=== PATIENT | female | born 1940 | race Caucasian/White ===

== ENCOUNTER 2017-10-08 00:01 | Emergency (ER) | payer OTHER ==
[~2017-10-08] VITALS: Ht 154.9 cm; Wt 62.1 kg
[~2017-10-08 00:01] MED LIST: COLACE100 MG PO; KEFLEX500 MG PO; LAC PO; LIPITOR10 MG PO; NOR10T PO
[2017-10-08 00:07] VITALS: Ht 154.9 cm; Wt 62.1 kg
[2017-10-08 03:11] VITALS: BP 145/78
== END 2017-10-08 03:11 | disposition home or self-care (01) ==
LOC: ED 00:01
DX: R51 Headache (principal); R20.2 Paresthesia of skin; E78.00 Pure hypercholesterolemia, unspecified

== ENCOUNTER 2017-12-20 16:17 | Emergency (ER) | payer OTHER ==
[~2017-12-20] VITALS: Ht 154.9 cm; Wt 62.6 kg
[2017-12-20 16:27] VITALS: Ht 154.9 cm; Wt 62.6 kg
[2017-12-20 21:27] VITALS: BP 146/78
== END 2017-12-20 21:27 | disposition home or self-care (01) ==
LOC: ED 16:17
DX: S06.0X0A Concussion without loss of consciousness, initial encounter (principal); S22.31XA Fracture of one rib, right side, initial encounter for closed fracture; S13.4XXA Sprain of ligaments of cervical spine, initial encounter; S29.012A Strain of muscle and tendon of back wall of thorax, initial encounter; S70.02XA Contusion of left hip, initial encounter; E78.00 Pure hypercholesterolemia, unspecified; W18.30XA Fall on same level, unspecified, initial encounter; Y93.89 Activity, other specified; Y99.8 Other external cause status; Y92.89 Other specified places as the place of occurrence of the external cause
CPT/HCPCS: 72072

== ENCOUNTER 2019-01-07 08:43 | Emergency (ER) | payer OTHER ==
[~2019-01-07] VITALS: Ht 154.9 cm; Wt 60.8 kg
[2019-01-07 08:47] VITALS: Ht 154.9 cm; Wt 60.8 kg
[2019-01-07 09:50] VITALS: BP 142/88
== END 2019-01-07 10:56 | disposition home or self-care (01) ==
LOC: ED 08:43
DX: S13.9XXA Sprain of joints and ligaments of unspecified parts of neck, initial encounter (principal); M54.5 Low back pain; E78.00 Pure hypercholesterolemia, unspecified; Z90.49 Acquired absence of other specified parts of digestive tract; Z98.890 Other specified postprocedural states; W18.40XA Slipping, tripping and stumbling without falling, unspecified, initial encounter; Y93.89 Activity, other specified; Y92.89 Other specified places as the place of occurrence of the external cause; Y99.8 Other external cause status

== ENCOUNTER 2020-06-01 18:27 | Emergency (ER) | payer OTHER ==
[~2020-06-01] VITALS: Ht 157.5 cm; Wt 61.7 kg
[2020-06-01 18:45] VITALS: Ht 157.5 cm; Wt 61.7 kg
[2020-06-01 20:10] VITALS: BP 152/78
== END 2020-06-01 20:10 | disposition home or self-care (01) ==
LOC: ED 18:27
DX: S50.01XA Contusion of right elbow, initial encounter (principal); W18.39XA Other fall on same level, initial encounter; Y93.89 Activity, other specified; Y92.89 Other specified places as the place of occurrence of the external cause; Y99.8 Other external cause status
CPT/HCPCS: J1885